=== PATIENT | male | born 1990 | race Caucasian/White ===

== ENCOUNTER 2023-12-16 12:59 | Emergency (ER) | payer OTHER ==
[~2023-12-16] VITALS: Ht 180.3 cm; Wt 98.3 kg
[2023-12-16 13:15] LABS: BASOPHILS 0.8 % (0-2); EOSINOPHILS 3.7 % (0-6); HEMATOCRIT 46.9 % (35.0-50.0); HEMOGLOBIN 16.2 g/dL (12.0-18.0); LYMPHOCYTES 36.8 % (24-44); MCH 29.8 (27-36); MCHC 34.7 g/dl (30-36); MCV 85.8 fl (81-99); MONOCYTES 10.8 % (0-12); NEUTROPHILS 47.9 % (39-80); PLATELET COUNT 299 K/uL (140-440); RBC 5.46 M/ul (4.3-5.7); RDW 12.8 (10.5-15.0)
[2023-12-16 13:36] LABS: ALBUMIN/GLOBULIN RATIO 1.05 (1.1-2.4); ALCOHOL, MEDICAL <3 ng/dL (<3); ALKALINE PHOSPHATASE 106 U/L (46-116); ALT (SGPT) 23 U/L (14-59); ANION GAP 13.5 (7-21); AST (SGOT) 23 U/L (15-37); BILIRUBIN, TOTAL 0.5 ng/dL (0.2-1.0); BUN/CREATININE RATIO 11.71 (6.0-28.6); CALCIUM 9.1 mg/dL (8.5-10.1); CARBON DIOXIDE 27 mmol/L (21-32); CHLORIDE 100 mmol/L (98-107); CREATININE, SERUM 1.28 mg/dL (0.70-1.30); GLOMERULAR FILTRATION RATE,EST 77 mL/min (>60); POTASSIUM 3.5 mmol/L (3.5-5.1); PROTEIN, TOTAL 7.8 g/dL (6.4-8.2); UREA NITROGEN 15 mg/dL (7-18)
[2023-12-16 13:52] LABS: ABO B; RH POSITIVE
[2023-12-16 13:53] LABS: ANTIBODY SCREEN NEGATIVE
[2023-12-16 14:49] LABS: AMPHETAMINES, URINE NEGATIVE (NEGATIVE); BARBITURATES, URINE NEGATIVE (NEGATIVE); BENZODIAZEPINE, URINE NEGATIVE (NEGATIVE); BUPRENORPHINE, URINE NEGATIVE (NEGATIVE); CANNABINOID, URINE NEGATIVE (NEGATIVE); COCAINE, URINE NEGATIVE (NEGATIVE); ECSTASY, URINE NEGATIVE (NEGATIVE); FENTANYL, URINE NEGATIVE (NEGATIVE); METHADONE, URINE NEGATIVE (NEGATIVE); OPIATES, URINE NEGATIVE (NEGATIVE); OXYCODONE, URINE NEGATIVE (NEGATIVE); PHENCYCLIDINE, URINE NEGATIVE (NEGATIVE)
[2023-12-16 17:33] VITALS: BP 139/72
== END 2023-12-16 16:20 | disposition home or self-care (01) ==
LOC: ED 12:59
PROVIDERS: Emergency Medicine
DX: Z04.1 Encounter for examination and observation following transport accident (principal)
CPT/HCPCS: 36415; 70450; 71045; 71260; 72125; 74177; 80053; 80307; 85025; 86850; 86900; 86901; 99284-25; G0480; Q9967